=== PATIENT | male | born 1990 | race Caucasian/White ===

== ENCOUNTER 2022-09-01 20:24 | Emergency (ER) | payer MEDICAID, SELFPAY ==
--- NOTE | ~2022-09-01 | XR_ITS ---
EXAMINATION: XR HAND, RIGHT CLINICAL INFORMATION: Laceration. Concern for foreign body. COMPARISON: None TECHNIQUE: PA, lateral, and oblique views of the right hand. FINDINGS: No radiopaque foreign body. The bones and soft tissues are normal. No fracture. Alignment is anatomic. Joint spaces are maintained. No erosions or soft tissue calcifications. XR/XR hand RT 2V IMPRESSION: Normal right hand. No radiopaque foreign body.
[2022-09-01 20:33] VITALS: BP 136/67; PULSE 70; RESP 16; TEMP 36.4; O2SAT 95; BMI 23.0
--- NOTE | 2022-09-01 20:46 | ED_ITS ---
HPI - Wound/Laceration General Chief Complaint: Wound/Laceration Stated Complaint: R hand lac Time Seen by Provider: 09/01/22 20:43 Source: patient Mode of arrival: ambulatory History of Present Illness HPI narrative: 31-year-old male with no significant past medical history presenting to the ED complaining of laceration to right hand s/p picking up a dryer at work and hand slipping [employer]. Tetanus is up-to-date. Reports mild paresthesias. Denies crush injury, injury to the area, numbness, weakness Onset (ago): hour(s) Related Data Allergies Allergy/AdvReac Type Severity Reaction Status Date / Time Penicillins [PENICILLINS] Allergy Unknown HIVES Unverified 06/26/20 17:00 Review of Systems Review of Systems: Constitutional: No Fever, No Chills ENT/Mouth: No Ear Pain, No Nasal Congestion, No sore throat, No Rhinorrhea, No Swallowing Difficulty Cardiovascular: No Chest Pain, No SOB Respiratory: No Cough, No Sputum, No Wheezing Gastrointestinal: No Nausea, No Vomiting, No Diarrhea, No Abdominal pain Genitourinary: No Dysuria, No Urinary Frequency, No Hematuria, No Flank Pain Musculoskeletal: + joint pain, No Myalgias, No Joint Swelling Skin: + Skin Lesions, No rash Neuro: No Weakness, No Numbness, + Paresthesias Yes all other systems are reviewed and are negative Constitutional: Constitutional: Reports as per HPI Neurologic: Denies Sensory deficit (Neuro) [facility] Past Medical History Attestation statement: The following information was validated with the patient. Social History Social History Advance Directives: No Physical Exam Vital Signs: Vital Signs: Last Vital Signs Temp 98 F 09/01/22 22:03 Pulse 56 09/01/22 22:03 Resp 19 09/01/22 22:03 BP 121/76 09/01/22 22:03 Pulse Ox 95 09/01/22 22:03 O2 Del Method 09/01/22 22:03 BMI result Body Mass Index 23.0 Const: General: cooperative, healthy appearing, comfortable and no acute distress Orientation/consciousness: patient oriented x3 Limitations: no limitations HEENT: Head: Yes normal to inspection and Yes atraumatic Ears: hearing grossly normal bilaterally General nose exam: Normal external nose present Face and sinus: Yes normal facial exam Eyes: General: appearance normal, both eyes and all related structures EOM: EOMs intact bilaterally Neck: Neck: Yes normal visual inspection and Yes no meningeal signs Resp: Effort & Inspection: normal respiratory effort and no respiratory distress Cardio: Rate: regular rate Heart sounds: S1 normal heart sound present and S2 normal heart sound present Peripheral pulses: radial pulses present and ulnar radial pulses present Skin: Other: + superficial 2 cm laceration noted to right palm ulnar aspect. NV intact. Full range of motion intact to digits & wrist, finger thumb opposition intact. Sensation intact to light touch Rashes: no rashes Neuro: General: patient oriented x3, tone normal and no meningeal signs Gait exam (Neuro): Normal gait present Sensory Exam: No Sensory deficit (Neuro) Extrem: General: Yes normal to inspection Course Course Course Narrative: XR hand RT 2V IMPRESSION: Normal right hand. No radiopaque foreign body. ? >Results discussed with patient including worrisome signs and symptoms and strict return precautions, and when to return to the emergency department. They verbalized understanding and feel safe for discharge at this time. MDM - Wound/Laceration MDM Narrative Medical decision making narrative: 31-year-old male with no significant past medical history presenting to the ED complaining of laceration to right hand s/p picking up a dryer at work and hand slipping [employer]. On exam VSS, NAD, nontoxic appearing, superficial laceration noted to right home ulnar aspect Plan: Dermabond Differential Diagnosis Differential diagnosis: Likely laceration Medical Records Attestation: I reviewed the patient's medical records. Lab Data Attestation: I reviewed the patient's lab results. Procedures Laceration Laceration 1: Site: hand Side (If applicable): right Description: linear Pre-repair: wound explored Skin layer closed with: other (Dermabond) Discharge Plan Discharge Clinical Impression: Laceration Patient Disposition: Home, Self-Care Instructions: Laceration (ED) Additional Instructions: Your x-rays unremarkable. Your wound was repaired with skin glue, keep dry and clean. Do not pick at this it will fall off on its own If area begins look infected, is red, there is drainage or you fever return to the emergency department Referrals: Physician,None [Primary Care Provider] - 1 week Interventions: ED Discharge Assessment Last Done: 09/01/22 22:21 Discharge Date/Time: 09/01/22 22:21
--- OUTSIDE RECORDS SUMMARY | 2022-09-01 21:22 | XMS_ITS | Continuity of Care Document ---
:1990 Author Organization [facility] Address [address] [place] [id number]- Care Team Providers Name Role Phone Not on Staff, PCP Primary Care Physician Unavailable Encounter [facility] Date(s): 10/27/19 - 10/27/[address] [address]- [facility] Discharge Disposition: A-D/C Home Attending Physician: Daniel Davison DO Admitting Physician: Daniel Davison DO Referring Physician: Not on Staff, Referring MD Allergies, Adverse Reactions, Alerts Substance Reaction Severity Status penicillin Active Immunizations Given and Recorded Vaccine Date Status Refusal Reason tetanus/diphtheria/pertussis, acel(Tdap) 03/18/13 Given Medications No Known Medications Results Radiology Reports Exam Date Time Procedure Performing Provider Status 10/27/19 3:47 PM Chest 2 Views Frontal and Lat Doron Varela (Verified) Notes:(Chest 2 Views Frontal and Lat) Reason For Exam: Shortness of Breath RESULT: Chest 2 Views Frontal and Lat Chest 2 Views Frontal and Lat INDICATION: Reason: Shortness of Breath; Clinical Question(s): Pneumonia; Special Instructions: Thisis a protocol film and radiologist should call any findings to the Charge Nurse; Hx of Present Illness: pt states it hurts to breath or move : pt unaware of injury pt very anxious; Other Objective Findings: pt smells of etoh was incarcerated when pain started COMPARISON: 08/28/2012 FINDINGS: Clear lungs. No pneumothorax or effusion. Normal size heart. IMPRESSION: No acute abnormality. WSN: [id number] Dictated By: Jneae Hobson MD Dictated Date/Time: 10/27/19 3:50 pm Reviewed By: Jenae Hobson MD Signed By: Jenae Hobson MD Signed Date/Time: 10/27/19 3:50 pm Transcribed By: AKIN Transcribed Date/Time: 10/27/19 3:49 pm Vital Signs Most recent to oldest 1 2 3 [Reference Range]: Weight 77.2 kg 77.2 kg 77.2 kg (10/27/19 6:07 PM) (10/27/19 6:02 PM) (10/27/19 3:1 5 PM) Oxygen Saturation [94-100 %] 99 % 99 % 97 % (10/27/19 6:33 PM) (10/27/19 6:21 PM) (10/27/19 6:0 7 PM) Pulse Rate [55-90 bpm] 79 bpm 83 bpm 102 bpm (10/27/19 6:33 PM) (10/27/19 6:21 PM) *H* (10/27/19 6:07 PM ) Blood Pressure [90-138/55-84 mm 164/93 mm Hg 148/78 mm Hg 156/105 mm Hg Hg] *H* *H* *H* (10/27/19 6:33 PM) (10/27/19 6:07 PM) (10/27/19 3:1 5 PM) Respiratory Rate [16-30 br/min] 16 br/min 18 br/min 18 br/min (10/27/19 6:33 PM) (10/27/19 6:07 PM) (10/27/19 3:1 5 PM) Temperature [96.8-100.4 DegF] 98.7 DegF 98.2 DegF (10/27/19 6:02 PM) (10/27/19 3:15 PM) Mode of Delivery (Oxygen) Room air Room air Room a ir (10/27/19 6:33 PM) (10/27/19 6:07 PM) (10/27/19 6:0 2 PM) Blood pressure sites Arm, left Arm, right Arm, right (10/27/19 6:33 PM) (10/27/19 6:07 PM) (10/27/19 6:0 2 PM) Temperature Route Oral Oral (10/27/19 6:02 PM) (10/27/19 3:15 PM) Dry Weight 77.2 kg 77.2 kg 77.2 kg (10/27/19 6:07 PM) (10/27/19 6:02 PM) (10/27/19 3:1 5 PM) Weight Obtained Via Standing scale (10/27/19 3:15 PM) Dry Weight Obtained Via Standing scale (10/27/19 3:15 PM)
[2022-09-01 22:03] VITALS: BP 121/76; PULSE 56; RESP 19; TEMP 36.6; O2SAT 95
== END 2022-09-01 22:21 | disposition home or self-care (01) ==
PROVIDERS: Emergency Provider Emergency Medicine
DX: S61.411A Laceration without foreign body of right hand, initial encounter (principal); W26.9XXA Contact with unspecified sharp object(s), initial encounter; Y93.9 Activity, unspecified; Y92.9 Unspecified place or not applicable; Y99.0 Civilian activity done for income or pay
CPT/HCPCS: 12001; 73120; 99283